=== PATIENT | female | born 1950 | race Caucasian/White ===

== ENCOUNTER 2017-10-04 09:50 | Observation (INO) | payer OTHER ==
[2017-10-04 10:23] VITALS: BMI 28.0
--- NOTE | 2017-10-04 10:40 | PDOC ---
History of Present Illness - General History Source: Patient Exam Limitations: No Limitations - History of Present Illness Initial Comments: 10/04/17 12:20 The patient is a 67 year old female, with a significant past medical history of hypertension and kidney stones, who presents to the emergency department with fever, cough, and body aches for approximately 3 days.The patient reports she initially developed a cough that was productive of white sputum. She reports associated chest discomfort, exacerbated with coughing. She reports a subjective fever, diffuse muscle aches, and a headache(yesterday), but denies any chills, sore throat, dizziness, or lightheadedness. She denies any shortness of breath, diaphoresis, or palpitations. She denies any abdominal pain , nausea, vomiting, diarrhea, or constipation. She denies any dysuria, hematuria , frequency, or urgency. The patient reports she is currently visiting from [place]. Allergies: NKDA Past Surgical History: Lithotripsy Social History: Non smoker. No ETOH or recreational drug use. <Scarlett Viveros - Last Filed: 10/04/17 14:29> <Naga Stinson - Last Filed: 10/04/17 14:52> - General Chief Complaint: SIRS, Suspected/Possible Stated Complaint: FEVER, COUGH Time Seen by Provider: 10/04/17 10:35 Past History <Scarlett Viveros - Last Filed: 10/04/17 14:29> - Past Medical History COPD: No HTN: Yes Kidney Stones: Yes - Surgical History GI Surgery: Yes (KIDNEY STONE REMOVAL) - Suicide/Smoking/Psychosocial Hx Smoking History: Never smoked <Naga Stinson - Last Filed: 10/04/17 14:52> - Past Medical History Allergies/Adverse Reactions: Allergies Allergy/AdvReac Type Severity Reaction Status Date / Time No Known Allergies Allergy Verified 10/04/17 10:18 Review of Systems - Review of Systems Able to Perform ROS?: Yes Comments:: 10/04/17 12:20 CONSTITUTIONAL: +Fever. No chills, no fatigue EYES: No visual changes ENT: No ear pain, no sore throat CARDIOVASCULAR: No chest pain, no palpitations RESPIRATORY: +Cough. No SOB GI: No abdominal pain, no nausea, no vomiting, no constipation, no diarrhea GENITOURINARY: No dysuria, no frequency, no hematuria MUSCULOSKELETAL: +Diffuse muscle aches. No back pain. SKIN: No rash NEURO: +Headache <Scarlett Viveros - Last Filed: 10/04/17 14:29> *Physical Exam - Vital Signs Last Vital Signs Temp Pulse Resp BP Pulse Ox 102.4 F H 111 H 17 156/77 96 10/04/17 10:18 10/04/17 10:18 10/04/17 10:18 10/04/17 10:18 10/04/17 10:18 - Physical Exam Comments: 10/04/17 12:22 CONSTITUTIONAL: Febrile. Well-appearing; well-nourished; in no apparent distress HEAD: Normocephalic; atraumatic EYES: PERRL; EOM intact ENMT: External appears normal; normal oropharynx NECK: Supple; non-tender; no cervical lymphadenopathy. CARD: Normal S1, S2; no murmurs, rubs, or gallops CHEST: Reproducible midsternal chest wall tenderness. RESP: Intermittent wheezing bilaterally. Normal chest excursion with respiration ; no rhonchi, or rales ABD: Soft, non-distended; non-tender; no palpable organomegaly, no palpable hernias EXT: Normal ROM in all four extremities; non-tender to palpation; distal pulses intact SKIN: Warm, dry, no rash NEURO: No focal neurological deficiencies. <Scarlett Viveros - Last Filed: 10/04/17 14:29> - Vital Signs Last Vital Signs Temp Pulse Resp BP Pulse Ox 102.4 F H 111 H 17 156/77 96 10/04/17 10:18 10/04/17 10:18 10/04/17 10:18 10/04/17 10:18 10/04/17 10:18 <Naga Stinson - Last Filed: 10/04/17 14:52> Heart Score/ECG Review - ECG Intrepretation Comment:: 10/04/17 12:23 Vent Rate: 94 bpm IMPRESSION: Normal sinus rhythm. Nonspecific ST and T wave abnormality. <Scarlett Viveros - Last Filed: 10/04/17 14:29> ED Treatment Course - LABORATORY CBC & Chemistry Diagram: 10/04/17 11:17 10/04/17 11:17 - ADDITIONAL ORDERS Additional order review: Laboratory Results 10/04/17 10/04/17 11:17 11:15 PT with INR 12.50 INR 1.11 PTT (Actin FS) 25.9 L VBG pH 7.45 H POC VBG pCO2 40.6 POC VBG pO2 46.0 Mixed VBG HCO3 28.0 H 10/04/17 11:17 RBC 3.70 MCV 94.3 MCHC 35.1 RDW 13.2 MPV 9.4 Neutrophils % 76.0 Lymphocytes % 12.3 Monocytes % 10.6 H Eosinophils % 0.7 Basophils % 0.4 - Medications Given in the ED: ED Medications Discontinued Medications Generic Name Dose Route Start Last Admin Trade Name Sean PRN Reason Stop Dose Admin Acetaminophen 650 mg 10/04/17 10:41 10/04/17 11:02 Tylenol - PO 10/04/17 10:42 650 mg ONCE ONE Administration <Scarlett Viveros - Last Filed: 10/04/17 14:29> - LABORATORY CBC & Chemistry Diagram: 10/04/17 11:17 10/04/17 11:17 <Naga Stinson - Last Filed: 10/04/17 14:52> Medical Decision Making - Medical Decision Making 10/04/17 14:32 This is 67-year-old female with history of hypertension presents with flulike symptoms, fever, chills, myalgias and cough productive of purulent sputum. In the ER, patient is febrile and mildly tachycardic; intermittent expiratory wheezing is noted bilaterally. Chest x-ray reveals no evidence of infiltrate, increased interstitial markings are noted. Patient is noted to be influenza a positive. I suspect influenza a infection with superimposed bacterial pneumonia. We'll administer Tamiflu, ceftriaxone and Zithromax for CAP. Will place in obs. <Naga Stinson - Last Filed: 10/04/17 14:52> *DC/Admit/Observation/Transfer - Attestations Scribe Attestion: 10/04/17 12:23 Documentation prepared by Scarlett Viveros, acting as medical examiner for Naga Stinson MD. <Scarlett Viveros - Last Filed: 10/04/17 14:29> - Discharge Dispostion Decision to Admit order: Yes - Attestations Physician Attestion: 10/04/17 14:31 The documentation was prepared by the scribe under my direct supervision. I have reviewed the documentation which correctly represents the findings, medical decision-making and critical action taken by me. <Naga Stinson - Last Filed: 10/04/17 14:52> Diagnosis at time of Disposition: Influenza A Pneumonia Qualifiers: Pneumonia type: due to unspecified organism Laterality: unspecified laterality Lung location: unspecified part of lung Qualified Code(s): J18.9 - Pneumonia, unspecified organism - Discharge Dispostion Condition at time of disposition: Fair
[2017-10-04] MEDS ORDERED: ACETAMINOPHEN 325 MG TABLET (FP) PO ONE (10:41)
[2017-10-04] MEDS ORDERED: ACETAMINOPHEN 325 MG TABLET (FP) ONE ×2 (11:03→21:45)
[2017-10-04 11:40] LABS: BASO % 0.4 % (0-2.0); EOS % 0.7 % (0-4.5); HEMATOCRIT 34.9 % (32.4-45.2); HEMOGLOBIN 12.2 GM/dL (10.7-15.3); LYMPH % 12.3 % (8-40); MCH 33.1 pg (25.7-33.7); MCHC 35.1 g/dl (32.0-36.0); MEAN CELL VOLUME 94.3 fl (80-96); MEAN PLT VOLUME 9.4 fl (7.5-11.1); MONO % 10.6 % (3.8-10.2); PLATELET COUNT 174 K/MM3 (134-434); RDW 13.2 % (11.6-15.6); WHITE BLOOD COUNT 4.6 K/mm3 (4.0-10.0)
[2017-10-04] MEDS ORDERED: SODIUM CHLORIDE 1,000 ML IV STA ×2 (11:45→15:12)
[2017-10-04 11:58] LABS: VENOUS PC02 40.6 mmHg (38-52); VENOUS PH 7.45 (7.32-7.42)
[2017-10-04 11:59] LABS: INR 1.11 (0.82-1.09); PROTHROMBIN TIME (PATIENT) 12.5 SEC (9.7-13.0)
[2017-10-04 12:02] LABS: ACTIVATED PTT 25.9 SECONDS (26.9-34.4)
[2017-10-04] MEDS ORDERED: OSELTAMIVIR PHOSPHATE 75 MG CAPSULE PO ONE (12:59)
[2017-10-04] MEDS ORDERED: CEFTRIAXONE 1,000 MG in DEXTROSE 5%-WATER - 50 ML IVPB ONE (13:01)
[2017-10-04 13:09] LABS: URINE APPEARANCE SLCLOUDY; URINE BILIRUBIN NEGATIVE (<2.0 mg/dL); URINE COLOR YELLOW; URINE GLUCOSE (UA) NEGATIVE (NEGATIVE); URINE KETONE NEGATIVE (NEGATIVE); URINE LEUK ESTERASE NEGATIVE (NEGATIVE); URINE NITRITE NEGATIVE (NEGATIVE); URINE PROTEIN NEGATIVE (NEGATIVE)
[2017-10-04 13:15] LABS: EPI CELLS RARE /HPF (FEW); URINE BACTERIA RARE /hpf (NONE SEEN); URINE HYALINE CAST 1 /lpf; URINE MUCUS RARE
[2017-10-04] MEDS ORDERED: OSELTAMIVIR PHOSPHATE 75 MG CAPSULE ONE ×2 (13:18→21:45)
[2017-10-04] MEDS ORDERED: CEFTRIAXONE 2 GM/100 ML BAG IVPB ONE (13:19)
[2017-10-04 13:40] LABS: ALBUMIN 4.1 g/dl (3.4-5.0); ANION GAP 11 (8-16); BLOOD UREA NITROGEN 11 mg/dL (7-18); CALCIUM 9.2 mg/dL (8.5-10.1); CHLORIDE 103 mmol/L (98-107); CO2 27 mmol/L (21-32); CREATININE 0.8 mg/dL (0.55-1.02); GLUCOSE,RANDOM 111 mg/dL (74-106); POTASSIUM 3.6 mmol/L (3.5-5.1); SGOT/AST 32 U/L (15-37); SGPT/ALT 44 U/L (12-78); SODIUM 141 mmol/L (136-145)
[2017-10-04 13:42] LABS: ALK PHOS 81 U/L (45-117); BILIRUBIN,TOTAL 0.9 mg/dL (0.2-1.0); TOT PROT 7.3 g/dl (6.4-8.2)
[2017-10-04] MEDS ORDERED: AZITHROMYCIN IVPB 500 MG in DEXTROSE 5%-WATER - 250 ML IVPB ONE (14:15)
[2017-10-04] MEDS ORDERED: ALBUTEROL SO4 2.5/IPRATROPIUM 0.5 INH SOL 3 ML VIAL.NEB. NEB ONE ×2 (14:29→14:48)
[2017-10-04] MEDS ORDERED: AZITHROMYCIN IVPB 250 ML IVPB ONE (14:48)
--- NOTE | 2017-10-04 15:29 | EKG ---
Test Reason : Blood Pressure : / mmHG Vent. Rate : 094 BPM Atrial Rate : 094 BPM P-R Int : 124 ms QRS Dur : 080 ms QT Int : 326 ms P-R-T Axes : 080 054 102 degrees QTc Int : 407 ms POOR DATA QUALITY, INTERPRETATION MAY BE ADVERSELY AFFECTED NORMAL SINUS RHYTHM NONSPECIFIC ST AND T WAVE ABNORMALITY ABNORMAL ECG NO PREVIOUS ECGS AVAILABLE Confirmed by MAGGY SOLORZANO, SONIA ([id number]) on 10/04/2017 3:28:56 PM Referred By: Confirmed By:SONIA WINTER MD
--- NOTE | 2017-10-04 15:57 | HP ---
<Paula Rivers - Last Filed: 10/05/17 08:56> Patient presented with fever, myalgia, stated that her family had the flu. ID Consult , will start her Tamiflu 75mg bid , Patient received Rocephin and Zithromax IV . Discussed with ID. CXR: No acute pathology. Visit type - Emergency Visit Emergency Visit: Yes ED Registration Date: 10/04/17 Care time: The patient presented to the Emergency Department on the above date and was hospitalized for further evaluation of their emergent condition. - New Patient This patient is new to me today: Yes Date on this admission: 10/05/17 - Critical Care Critical Care patient: Yes Total Critical Care Time (in minutes): 35 Critical Care Statement: The care of this patient involved high complexity decision making to prevent further life threatening deterioration of the patient 's condition and/or to evaluate & treat vital organ system(s) failure or risk of failure. Hospitalist Screening - Colonoscopy Questionnaire Colonoscopy Questionnaire: Colonoscopy Questionnaire <Aide Kincaid - Last Filed: 10/08/17 17:44> CHIEF COMPLAINT: Cough, fever, malaise PCP: Physician in [place] HISTORY OF PRESENT ILLNESS: Patient is a 67 year old female with a PMHx of HTN and Asthma who presented today complaining of worsening cough, fever, and malaise for the past three days. Patient reports a productive cough with white phlegm associated with body aches, muscle aches, and chest pain. She states the chest pain occurs only when she coughs or when palpating the chest. She does report being around her sister in law who had the flu this week and is staying at her place. Patient does report having blood tinged sputum due to excessive and severe cough for the past two days. Otherwise, patient denies any night sweats, diaphoresis, shortness of breath, rhinorrhea, chills, nausea, vomiting, abdominal pain, hematuria, dysuria, frequency, urgency. Patient currently lives in [place] and is suppose to go back on Monday. She does have a PCP in [place]. ER course was notable for: (1) Fever >102, Tachycardic (2) Flu A (+) (3) Chest X-ray shows increased interstitial markings Recent Travel: [place] PAST MEDICAL HISTORY: HTN, Asthma (On no medications) PAST SURGICAL HISTORY: Cholecystectomy (1993), Carpal Tunnel release, Hysterectomy (30 years ago), (34 years) Social History: Smoking: Denies Alcohol: Denies Drugs: Denies Family History: Denies Allergies: No Known Allergies Allergy (Verified 10/04/17 10:18) HOME MEDICATIONS: Home Medications Medication Instructions Recorded Hydrochlorothiazide [Hctz -] 25 mg PO DAILY 10/04/17 Lisinopril [Prinivil] 5 mg PO DAILY 10/04/17 REVIEW OF SYSTEMS CONSTITUTIONAL: fever, generalized weakness, malaise Absent: chills, diaphoresis, loss of appetite, weight change HEENT: Absent: rhinorrhea, nasal congestion, throat pain, throat swelling, difficulty swallowing, mouth swelling, ear pain, eye pain, visual changes CARDIOVASCULAR: chest pain Absent: chest pain, syncope, palpitations, irregular heart rate, lightheadedness , peripheral edema RESPIRATORY: cough, wheezing Absent: shortness of breath, dyspnea with exertion, orthopnea, stridor, hemoptysis GASTROINTESTINAL: Absent: abdominal pain, abdominal distension, nausea, vomiting, diarrhea, constipation, melena, hematochezia GENITOURINARY: Absent: dysuria, frequency, urgency, hesitancy, hematuria, flank pain, genital pain MUSCULOSKELETAL: myalgia Absent: arthralgia, joint swelling, back pain, neck pain SKIN: Absent: rash, itching, pallor HEMATOLOGIC/IMMUNOLOGIC: Absent: easy bleeding, easy bruising, lymphadenopathy, frequent infections ENDOCRINE: Absent: unexplained weight gain, unexplained weight loss, heat intolerance, cold intolerance NEUROLOGIC: Absent: headache, focal weakness or paresthesias, dizziness, unsteady gait, seizure, mental status changes, bladder or bowel incontinence PSYCHIATRIC: Absent: anxiety, depression, suicidal or homicidal ideation, hallucinations. PHYSICAL EXAMINATION Vital Signs - 24 hr 10/04/17 10:18 Temperature 102.4 F H Pulse Rate 111 H Respiratory 17 Rate Blood Pressure 156/77 O2 Sat by Pulse 96 Oximetry (%) GENERAL: Awake, alert, and fully oriented, in no acute distress. HEAD: Normal with no signs of trauma. EYES: Pupils equal, round and reactive to light, extraocular movements intact, sclera anicteric, conjunctiva clear. EARS, NOSE, THROAT: Oropharynx clear without exudates. Moist mucous membranes. NECK: Normal range of motion, supple without lymphadenopathy, JVD, or masses. LUNGS: Coughing throughout examination. Expiratory wheezing throughout lung bases, R>L, no accessory muscle use. HEART: Tachycardic with regular rhythm, normal S1 and S2 without murmur, rub or gallop. Tenderness upon palpation of chest wall ABDOMEN: Soft, nontender, not distended, normoactive bowel sounds, no guarding, no rebound, no masses. MUSCULOSKELETAL: No CVA tenderness. UPPER EXTREMITIES: No peripheral edema. LOWER EXTREMITIES: No peripheral edema. NEUROLOGICAL: Cranial nerves II-XII intact. Normal speech.Muscle strength 5/5 bilaterally. Sensory intact throughout. No facial symmetry. PSYCHIATRIC: Cooperative. Good eye contact. Appropriate mood and affect. SKIN: Warm, dry, normal turgor, no rashes or lesions noted, normal capillary refill. Laboratory Results - last 24 hr CBC, BMP 10/04/17 11:17 10/04/17 11:17 10/04/17 10/04/17 10/04/17 11:15 11:17 11:17 INR 1.11 PTT (Actin FS) 25.9 L VBG pH 7.45 H POC VBG pCO2 40.6 POC VBG pO2 46.0 Mixed VBG HCO3 28.0 H AST 32 ALT 44 Alkaline Phosphatase 81 Microbiology 10/04/17 11:17 Influenza Types A,B Antigen (KEITH) - Final Nasopharyngeal Swab - Final Images Chest X-Ray (10/04/17): Increased interstitial markings. No evidence of infiltrates. ASSESSMENT/PLAN: Patient is a 67 year old female who presented with a three day history of fevers , cough, malaise, body aches and was found to be Flu A positive with possible Pneumonia. Sepsis Secondary Influenza A Positive with Possible Superimposed Bacterial Pneumonia -Fever >102F with Tachycardia >90's . Flu swab positive. -Continue Tamiflu 75mg BID for 5 days -Droplet Isolation precaution -Supportive Care -Continue Azithromycin 500mg IVPB daily and Ceftriaxone 1gm IVPB daily for CAP -Vancomycin 1gm daily for possible staph pneumonia in setting of flu -ID consult placed -Tylenol 650mg Q4H PRN for fevers -1 liter IV NS given with second bolus ordered. -Robitussin for cough -Urine antigens ordered -Sputum cultures sent -[facility] -Blood cultures pending Chest Wall tenderness -Likely costrochondritis due to inflammation and cough -Will continue Tylenol and may give NSAID if no improvement HTN -Controlled -Continue Home medication Lisinopril 5mg daily and HCTZ 25mg daily -Continue to monitor BP Asthma -In no acute exacerbation -Duo-Neb PRN F/E/N -2L IV NS -Electrolytes wnl -Sodium controlled diet Prophylaxis -Patient ambulates. Low risk. SCD's for DVT -No GI required Disposition -Full code -Will observe overnight in med/surg. Likely discharged tomorrow if improves Aide Kincaid MD PGY-2 Visit type - Emergency Visit Emergency Visit: Yes ED Registration Date: 10/04/17 Care time: The patient presented to the Emergency Department on the above date and was hospitalized for further evaluation of their emergent condition. - New Patient This patient is new to me today: Yes Date on this admission: 10/04/17 - Critical Care Critical Care patient: No Hospitalist Screening - Colonoscopy Questionnaire Colonoscopy Questionnaire: Colonoscopy Questionnaire - Patient: 50 - 75 years old and never had a screening colonoscopy: Unknown History of colon or rectal polyps, or CA: Unknown History of IBD, Crohn's disease or UC: Unknown History of abdominal radiation therapy as a child: Unknown - Relative: 1 with colon or rectal CA, or polyps at age 60 or younger: Unknown Colon or rectal CA diagnosed at age 45 or younger: Unknown Multiple relatives with colon or rectal CA: Unknown - Outcome: Screening Result: Negative Screen
[2017-10-04] MEDS ORDERED: IBUPROFEN 400 MG TABLET (FP) PO ONE (16:32)
[2017-10-04] MEDS ORDERED: ONDANSETRON 4 MG/2 ML VIAL IVPUSH ONE (17:30)
[2017-10-04] MEDS ORDERED: VANCOMYCIN 1 GM PREMIX - 1 GM/200 ML BAG IVPB ONE (17:30)
[2017-10-04] MEDS ORDERED: VANCOMYCIN 1,000 MG in DEXTROSE 5%-WATER - 250 ML IVPB ONE (17:30)
[2017-10-04] MEDS ORDERED: VANCOMYCIN 1,000 MG in DEXTROSE 5%-WATER - 250 ML IVPB SCH (17:30)
[2017-10-04] MEDS ORDERED: VANCOMYCIN 1 GRAM (PRE-DOCKED) 1,000 MG/250 ML BAG IVPB ONE ×2 (17:47)
[2017-10-04] MEDS ORDERED: ONDANSETRON 4 MG/2 ML VIAL ONE (17:47)
[2017-10-04] MEDS ORDERED: guaiFENesin 200 MG/10 ML 10 ML UNIT-DOSE CUPS PO PRN (18:26)
[2017-10-04] MEDS: OSELTAMIVIR PHOSPHATE 75 MG CAPSULE PO SCH (21:48)
[2017-10-04] MEDS: ACETAMINOPHEN 325 MG TABLET (FP) PO PRN (21:48)
[2017-10-05] MEDS: ALBUTEROL SO4 2.5/IPRATROPIUM 0.5 INH SOL 3 ML VIAL.NEB. NEB PRN ×2 (07:25→13:54)
[2017-10-05] MEDS ORDERED: HYDROCHLOROTHIAZIDE 25 MG TABLET (FP) PO SCH (10:00)
[2017-10-05] MEDS ORDERED: PT OWN MED DRAWER 7, Y5N ONE (10:04)
[2017-10-05] MEDS ORDERED: cefTRIAXone SODIUM 1 GM VIAL ONE (10:04)
[2017-10-05] MEDS ORDERED: DEXTROSE 5%-WATER - 50 ML IVPB ONE (10:04)
[2017-10-05] MEDS: OSELTAMIVIR PHOSPHATE 75 MG CAPSULE PO SCH ×2 (10:19→21:44)
[2017-10-05] MEDS: ACETAMINOPHEN 325 MG TABLET (FP) PO PRN (10:19)
[2017-10-05] MEDS: LISINOPRIL 5 MG TABLET (FP) PO SCH (10:19)
[2017-10-05] MEDS: CEFTRIAXONE 1 GM in DEXTROSE 5%-WATER - 50 ML IVPB SCH (10:20)
[2017-10-05] MEDS: AZITHROMYCIN IVPB 500 MG in DEXTROSE 5%-WATER - 250 ML IVPB SCH (10:22)
--- NOTE | 2017-10-05 14:59 | PN ---
Teaching Attending Note Name of Resident: Sheela Navarro ATTENDING PHYSICIAN STATEMENT I saw and evaluated the patient. I reviewed the resident's note and discussed the case with the resident. I agree with the resident's findings and plan as documented. SUBJECTIVE: pATIENT IS feeling better with no acute distress. Much better than yesterday. No fever or chills, no shortness of breath. OBJECTIVE: Vital Signs Temperature 99.2 F 10/05/17 14:45 Pulse Rate 78 10/05/17 14:45 Respiratory Rate 18 10/05/17 14:45 Blood Pressure 120/87 10/05/17 14:45 O2 Sat by Pulse Oximetry (%) 98 10/05/17 03:00 CBCD WBC 4.6 K/mm3 (4.0-10.0) 10/04/17 11:17 RBC 3.70 M/mm3 (3.60-5.2) 10/04/17 11:17 Hgb 12.2 GM/dL (10.7-15.3) 10/04/17 11:17 Hct 34.9 % (32.4-45.2) 10/04/17 11:17 MCV 94.3 fl (80-96) 10/04/17 11:17 MCHC 35.1 g/dl (32.0-36.0) 10/04/17 11:17 RDW 13.2 % (11.6-15.6) 10/04/17 11:17 Plt Count 174 K/MM3 (134-434) 10/04/17 11:17 MPV 9.4 fl (7.5-11.1) 10/04/17 11:17 CMP Sodium 141 mmol/L (136-145) 10/04/17 11:17 Potassium 3.6 mmol/L (3.5-5.1) 10/04/17 11:17 Chloride 103 mmol/L (98-107) 10/04/17 11:17 Carbon Dioxide 27 mmol/L (21-32) 10/04/17 11:17 Anion Gap 11 (8-16) 10/04/17 11:17 BUN 11 mg/dL (7-18) 10/04/17 11:17 Creatinine 0.8 mg/dL (0.55-1.02) 10/04/17 11:17 Creat Clearance w eGFR > 60 (>60) 10/04/17 11:17 Random Glucose 111 mg/dL (74-106) H 10/04/17 11:17 Calcium 9.2 mg/dL (8.5-10.1) 10/04/17 11:17 Total Bilirubin 0.9 mg/dL (0.2-1.0) 10/04/17 11:17 AST 32 U/L (15-37) 10/04/17 11:17 ALT 44 U/L (12-78) 10/04/17 11:17 Alkaline Phosphatase 81 U/L (45-117) 10/04/17 11:17 Total Protein 7.3 g/dl (6.4-8.2) 10/04/17 11:17 Albumin 4.1 g/dl (3.4-5.0) 10/04/17 11:17 CARDIAC ENZYMES Troponin I < 0.02 ng/ml (0.00-0.05) 10/04/17 11:17 Current Medications Generic Name Dose Route Start Last Admin Trade Name Freq PRN Reason Stop Dose Admin Acetaminophen 650 mg 10/04/17 15:12 10/05/17 10:19 Tylenol - PO 650 mg Q4H PRN Administration FEVER Albuterol/Ipratropium 1 amp 10/04/17 15:53 10/05/17 13:54 Duoneb - NEB 1 amp Q6H PRN Administration SHORTNESS OF BREATH Guaifenesin 10 ml 10/04/17 18:26 Robitussin - PO Q4H PRN COUGH Hydrochlorothiazide 25 mg 10/05/17 10:00 10/05/17 10:19 Hctz - PO 25 mg hold for now DAILY EMELY Administration Azithromycin 500 mg/ Dextrose 250 mls @ 250 mls/hr 10/05/17 10:00 10/05/17 10 :22 IVPB 250 mls/hr DAILY EMELY Administration Ceftriaxone Sodium 1 gm/ 50 mls @ 200 mls/hr 10/05/17 10:00 10/05/17 10:20 Dextrose IVPB 200 mls/hr DAILY EEMLY Administration Protocol Lisinopril 5 mg 10/05/17 10:00 10/05/17 10:19 Prinivil PO 5 mg DAILY EMELY Administration Oseltamivir Phosphate 75 mg 10/04/17 22:00 10/05/17 10:19 Tamiflu - PO 10/09/17 21:59 75 mg BID EMELY Administration Home Medications Medication Instructions Recorded Hydrochlorothiazide [Hctz -] 25 mg PO DAILY 10/04/17 Lisinopril [Prinivil] 5 mg PO DAILY 10/04/17 PE: Chest: CTABL rest of PE per resident ASSESSMENT AND PLAN: Patient is a 67 year old female who presented with a three day history of fevers , cough, malaise, body aches and was found to be Flu A positive with possible Pneumonia. #s/p Sepsis Secondary Influenza A Positive continue Tamiflu 75mg po bid x 5 days (07/03), On Rocephin, Zithromax continue , Droplet precaution #Chest Wall tenderness costrochondritis or irritation of the lungs due to having inflammation and cough. continue Tylenol prn #HTN Controlled continue Home medication Lisinopril 5mg daily and wii hold HCTZ 25mg po daily for now # Asthma stable, Duo-Neb PRN DVT Px: Lovenox sq Possible dc in am
--- NOTE | 2017-10-05 15:45 | PN ---
Progress Note (short form) - Note Progress Note: ID Consult dictated Acute influenza A Possible secondary bacterial pneumonia Continue Tamiflu, empiric ceftriaxone/ zithromax Droplet precautions
--- NOTE | 2017-10-05 16:52 | CONS ---
INFECTIOUS DISEASE CONSULTATION DATE OF CONSULTATION: DATE OF DICTATION: 10/05/2017 A 67-year-old female evaluated for acute influenza A. She is visiting from [place]. She was staying with family members here in [place], one or two of whom were sick with acute influenza. The patient developed a cough productive of whitish sputum and generalized body aches, headache, and fever. Symptoms began approximately 2-3 days prior to admission. She presented to the emergency room where she was noted to have fever to 102, tachycardia, and wheezing. Chest x-ray was negative for acute infiltrate. A rapid influenza swab was performed and was positive for influenza A. At the present time, she complains of body ache and cough which has improved. She denies any headache at the present time. No complaints of chest pain or dyspnea. She reports that at times the expectorated sputum is blood streaked. PAST MEDICAL HISTORY: Positive for hypertension, nephrolithiasis, asthma. PAST SURGICAL HISTORY: Status post cholecystectomy, hysterectomy, section. ALLERGIES: No known allergies. MEDICATIONS: Include Tylenol, lisinopril, Zithromax, ceftriaxone, Tamiflu. SOCIAL HISTORY: Living in [place], visiting [place]. Nonsmoker, nondrinker. SYSTEMS REVIEW: Neurologic: No loss of consciousness, seizure activity, focal weakness. Cardiac: Negative chest pain or palpitations. Respiratory: As per HPI. Gastrointestinal: Negative vomiting or diarrhea. Genitourinary: Negative for urinary tract infection. LABORATORY DATA: White count 4.6, hematocrit 34.9, platelet count 174. BUN 17, creatinine 0.8. Sputum: Normal ed. Blood culture is negative. Influenza swab positive. PHYSICAL EXAMINATION: General: She is awake and alert. She is weak appearing, in no acute distress. Vital Signs: Temperature 99.2, T-max 102.4; blood pressure 126/87; pulse 78, regular; respirations 18 per minute. HEENT: Sclerae are anicteric. Oropharynx: Mild injection. No exudate. Neck: Supple. No palpable nodes. Heart: Sounds S1, S2. Lungs: Crepitations at the bases bilaterally. Scattered rhonchi. Abdomen: Soft. No tenderness elicited. No mass, rebound, or rigidity. Extremities: Negative for edema. IMPRESSION: 1. Acute influenza A. 2. Possible secondary bacterial pneumonia. 3. Exacerbation of bronchial asthma. Continue Tamiflu. Continue Zithromax and ceftriaxone for possible secondary bacterial pneumonitis. Droplet precautions. Thank you for the kind referral. FRIDA PEÑA M.D. SHELBY/[id number]
--- NOTE | 2017-10-05 17:39 | PN ---
Physical Exam: SUBJECTIVE: Patient seen and examined at bedside. States that she still has a nonproductive cough, but feels better. No longer with malaise. She would like to go to [place] if possible. Denies CABRERA, fever, chills, SOB, or changes in urinary or bowel function. OBJECTIVE: Vital Signs Period Temp Pulse Resp BP Sys/Hunter Pulse Ox Last 24 Hr 98.3 F-102.3 F 75-110 18-20 106-133/52-87 96-98 GENERAL: The patient is awake, alert, and fully oriented, in no acute distress. HEAD: Normal with no signs of trauma. EYES: PERRL, extraocular movements intact, sclera anicteric, conjunctiva clear. ENT: Ears normal, nares patent, oropharynx - erythematous , moist mucous membranes. NECK: Trachea midline, supple. LUNGS: +diffuse rhonchi appreciated posteriorly (increased in bases) HEART: Regular rate and rhythm, S1, S2 without murmur, rub or gallop. ABDOMEN: Soft, nontender, nondistended, normoactive bowel sounds, no guarding, no rebound, no hepatosplenomegaly, no masses. EXTREMITIES: 2+ dp pulses, warm, well-perfused, no edema. NEUROLOGICAL: Cranial nerves II through XII grossly intact. Normal speech PSYCH: Normal mood, normal affect. SKIN: Warm, dry, normal turgor Laboratory Results - last 24 hr 10/04/17 11:17 Sodium 141 Potassium 3.6 Chloride 103 Carbon Dioxide 27 Anion Gap 11 BUN 11 Creatinine 0.8 Creat Clearance w eGFR > 60 Random Glucose 111 H Calcium 9.2 Total Bilirubin 0.9 AST 32 ALT 44 Alkaline Phosphatase 81 Troponin I < 0.02 Total Protein 7.3 Albumin 4.1 Active Medications Generic Name Dose Route Start Last Admin Trade Name Freq PRN Reason Stop Dose Admin Acetaminophen 650 mg 10/04/17 15:12 10/05/17 10:19 Tylenol - PO 650 mg Q4H PRN Administration FEVER Albuterol/Ipratropium 1 amp 10/04/17 15:53 10/05/17 13:54 Duoneb - NEB 1 amp Q6H PRN Administration SHORTNESS OF BREATH Guaifenesin 10 ml 10/04/17 18:26 Robitussin - PO Q4H PRN COUGH Azithromycin 500 mg/ Dextrose 250 mls @ 250 mls/hr 10/05/17 10:00 10/05/17 10 :22 IVPB 250 mls/hr DAILY EMELY Administration Ceftriaxone Sodium 1 gm/ 50 mls @ 200 mls/hr 10/05/17 10:00 10/05/17 10:20 Dextrose IVPB 200 mls/hr DAILY EMELY Administration Protocol Lisinopril 5 mg 10/05/17 10:00 10/05/17 10:19 Prinivil PO 5 mg DAILY EMELY Administration Oseltamivir Phosphate 75 mg 10/04/17 22:00 10/05/17 10:19 Tamiflu - PO 10/09/17 21:59 75 mg BID EMELY Administration CXR: no acute pathology Influenza A+ UCx (-) Blood Cx currently (-) sputum cx (-) ASSESSMENT/PLAN: Patient is a 67 year old female who presented with a three day history of fevers , cough, malaise, body aches and was found to be Flu A positive with possible Pneumonia. #Influenza A+ with Possible Superimposed Bacterial Pneumonia -currently is not septic; only with temp -Droplet Isolation precaution -supportive Care -Azithromycin 500mg IVPB qd and Ceftriaxone 1gm IVPB qd for CAP - Today is Day 2 -Tamiflu 75mg BID for 5 days - Today is Day 2 -sandrao has been d/c -ID- Dr. Payan -Tylenol 650 mg PO Q4H PRN for fever -Robitussin -UCx, Blood cx (-) #Chest Wall tenderness, likely costochondritis -continue tylenol 650 mg PO q4h PRN #HTN - controlled -Continue Home medication Lisinopril 5mg daily and HCTZ 25mg daily #Asthma -In no acute exacerbation -Duo-Neb PRN #F/E/N -encourage PO intake -continue to follow lytes -Sodium controlled diet Prophylaxis -Patient ambulates. Low risk. SCD's for DVT Disposition -continued monitoring on med surg Visit type - Emergency Visit Emergency Visit: No - New Patient This patient is new to me today: No - Critical Care Critical Care patient: No
[2017-10-06] MEDS: ACETAMINOPHEN 325 MG TABLET (FP) PO PRN (02:51)
[2017-10-06] MEDS: ALBUTEROL SO4 2.5/IPRATROPIUM 0.5 INH SOL 3 ML VIAL.NEB. NEB PRN (07:40)
[2017-10-06 08:53] LABS: BASO % 0.5 % (0-2.0); EOS % 2.4 % (0-4.5); HEMATOCRIT 36.3 % (32.4-45.2); HEMOGLOBIN 12.6 GM/dL (10.7-15.3); LYMPH % 48.4 % (8-40); MCH 33.1 pg (25.7-33.7); MCHC 34.6 g/dl (32.0-36.0); MEAN CELL VOLUME 95.4 fl (80-96); NEUT % 35.7 % (42.8-82.8); PLATELET COUNT 176 K/MM3 (134-434); RDW 13.1 % (11.6-15.6)
[2017-10-06 09:28] LABS: ANION GAP 8 (8-16); BLOOD UREA NITROGEN 10 mg/dL (7-18); CALCIUM 8.3 mg/dL (8.5-10.1); CHLORIDE 102 mmol/L (98-107); CO2 31 mmol/L (21-32); GLUCOSE,RANDOM 89 mg/dL (74-106); POTASSIUM 3.8 mmol/L (3.5-5.1); SODIUM 141 mmol/L (136-145)
[2017-10-06 09:29] LABS: CREATININE 0.8 mg/dL (0.55-1.02)
[2017-10-06] MEDS: CEFTRIAXONE 1 GM in DEXTROSE 5%-WATER - 50 ML IVPB SCH (10:00)
[2017-10-06] MEDS ORDERED: cefTRIAXone SODIUM 1 GM VIAL ONE (10:16)
[2017-10-06] MEDS ORDERED: DEXTROSE 5%-WATER - 50 ML IVPB ONE (10:17)
[2017-10-06] MEDS: LISINOPRIL 5 MG TABLET (FP) PO SCH (10:30)
[2017-10-06] MEDS: OSELTAMIVIR PHOSPHATE 75 MG CAPSULE PO SCH (10:30)
[2017-10-06] MEDS: AZITHROMYCIN IVPB 500 MG in DEXTROSE 5%-WATER - 250 ML IVPB SCH (10:31)
[2017-10-06 13:43] VITALS: BP 133/71; PULSE 80; TEMP 99.1
--- NOTE | 2017-10-06 20:07 | PN ---
Teaching Attending Note Name of Resident: Sheela Navarro ATTENDING PHYSICIAN STATEMENT I saw and evaluated the patient. I reviewed the resident's note and discussed the case with the resident. I agree with the resident's findings and plan as documented. SUBJECTIVE: Patient is feeling much better and would like to go home. OBJECTIVE: Vital Signs Temperature 99.1 F 10/06/17 09:00 Pulse Rate 80 10/06/17 09:00 Respiratory Rate 16 10/06/17 11:00 Blood Pressure 133/71 10/06/17 09:00 O2 Sat by Pulse Oximetry (%) 99 10/06/17 11:00 CBCD WBC 3.0 K/mm3 (4.0-10.0) L D 10/06/17 07:45 RBC 3.80 M/mm3 (3.60-5.2) 10/06/17 07:45 Hgb 12.6 GM/dL (10.7-15.3) 10/06/17 07:45 Hct 36.3 % (32.4-45.2) 10/06/17 07:45 MCV 95.4 fl (80-96) 10/06/17 07:45 MCHC 34.6 g/dl (32.0-36.0) 10/06/17 07:45 RDW 13.1 % (11.6-15.6) 10/06/17 07:45 Plt Count 176 K/MM3 (134-434) 10/06/17 07:45 MPV 10.0 fl (7.5-11.1) 10/06/17 07:45 CMP Sodium 141 mmol/L (136-145) 10/06/17 07:45 Potassium 3.8 mmol/L (3.5-5.1) 10/06/17 07:45 Chloride 102 mmol/L (98-107) 10/06/17 07:45 Carbon Dioxide 31 mmol/L (21-32) 10/06/17 07:45 Anion Gap 8 (8-16) 10/06/17 07:45 BUN 10 mg/dL (7-18) 10/06/17 07:45 Creatinine 0.8 mg/dL (0.55-1.02) 10/06/17 07:45 Creat Clearance w eGFR > 60 (>60) 10/04/17 11:17 Random Glucose 89 mg/dL (74-106) 10/06/17 07:45 Calcium 8.3 mg/dL (8.5-10.1) L 10/06/17 07:45 Total Bilirubin 0.9 mg/dL (0.2-1.0) 10/04/17 11:17 AST 32 U/L (15-37) 10/04/17 11:17 ALT 44 U/L (12-78) 10/04/17 11:17 Alkaline Phosphatase 81 U/L (45-117) 10/04/17 11:17 Total Protein 7.3 g/dl (6.4-8.2) 10/04/17 11:17 Albumin 4.1 g/dl (3.4-5.0) 10/04/17 11:17 CARDIAC ENZYMES Troponin I < 0.02 ng/ml (0.00-0.05) 10/04/17 11:17 Home Medications Medication Instructions Recorded Hydrochlorothiazide [Hctz -] 25 mg PO DAILY 10/04/17 Lisinopril [Prinivil] 5 mg PO DAILY 10/04/17 Oseltamivir Phosphate [Tamiflu] 75 mg PO BID #5 capsule 10/06/17 PE: as per resident's note ASSESSMENT AND PLAN: # Influenza A : patient is doing much better, will send her home 2.5 more days of Tamiflu, follow with the educational administrator in a week period. discussed with ID just to discharge home on tamiflu, no any other Antibiotics.
--- NOTE | 2017-10-06 22:46 | DS ---
Physical Exam: SUBJECTIVE: Patient seen and examined at bedside. No acute events overnight. Pt states that she is feeling well today and is ready to go to [place]. Denies CABRERA, fever, chills, myalgias, changes in urinary or bowel function. OBJECTIVE: Vital Signs Period Temp Pulse Resp BP Sys/Hunter Pulse Ox Last 24 Hr 98.6 F-100.4 F 77-81 16-20 133-140/71-79 99-99 PHYSICAL EXAM GENERAL: The patient is siting comfortably. awake, alert, and fully oriented, in no acute distress. HEAD: Normal with no signs of trauma. EYES: PERRL, extraocular movements intact, sclera anicteric, conjunctiva clear. ENT: Ears normal, nares patent, oropharynx clear without exudates, moist mucous membranes. NECK: Trachea midline, full range of motion, supple. LUNGS: Breath sounds equal, clear to auscultation bilaterally, no wheezes, no crackles, no accessory muscle use. HEART: Regular rate and rhythm, S1, S2 without murmur, rub or gallop. ABDOMEN: Soft, nontender, nondistended, normoactive bowel sounds, no guarding, no rebound, no hepatosplenomegaly, no masses. EXTREMITIES: 2+ dp pulses, warm, well-perfused, no edema. NEUROLOGICAL: Cranial nerves II through XII grossly intact. Normal speech PSYCH: Normal mood, normal affect. SKIN: Warm, dry, normal turgor LABS Laboratory Results - last 24 hr 10/06/17 10/06/17 07:45 07:45 WBC 3.0 L D RBC 3.80 Hgb 12.6 Hct 36.3 MCV 95.4 MCH 33.1 MCHC 34.6 RDW 13.1 Plt Count 176 MPV 10.0 Neutrophils % 35.7 L D Lymphocytes % 48.4 H D Monocytes % 13.0 H Eosinophils % 2.4 D Basophils % 0.5 Sodium 141 Potassium 3.8 Chloride 102 Carbon Dioxide 31 Anion Gap 8 BUN 10 Creatinine 0.8 Random Glucose 89 Calcium 8.3 L Radiology 10/04/17: CXR: without acute pathology Microbiology 10/04/17 12:50 Urine - Urine Clean Catch Urine Culture - Final NO GROWTH OBTAINED 10/04/17 11:30 Sputum - Expectorated Gram Stain - Final 10/04/17 11:30 Sputum - Expectorated Sputum Culture - Final NORMAL RESPIRATORY SENIA 10/04/17 11:17 Nasopharyngeal Swab Influenza Types A,B Antigen (KEITH) - Final : (+)FluA 10/04/17 11:17 Nasopharyngeal Swab - Final 10/04/17 11:25 Blood - Peripheral Venous Blood Culture - Preliminary NO GROWTH OBTAINED AFTER 48 HOURS, INCUBATION TO CONTINUE FOR 3 DAYS. 10/04/17 10:40 Blood - Peripheral Venous Blood Culture - Preliminary NO GROWTH OBTAINED AFTER 48 HOURS, INCUBATION TO CONTINUE FOR 3 DAYS. HOSPITAL COURSE: Date of Admission:10/04/17 Date of Discharge: 10/06/17 Admit diagnosis: influenza A+ with possible superimposed bacterial PNA 67 y/o F with a PMHx of HTN and Asthma who presented today c/o worsening cough, fever, and malaise for the past three days. Patient reports a productive cough with white phlegm associated with myalgias and pleuritic chest pain. Pt admitted for +FluA with possible superimposed bacterial PNA. While the pt was hospitalized, she was maintained on tamiflu 75mg PO BID for a five day course, of which she completed 3 days before d/c. She was started on azithromycin 500mg IVPB qd and ceftriaxone 1gm IVPB qd for community acquired PNA coverage for two days in case of superimposed infection. Today pt with significant improvement, without myalgias, improved breathing and lung sounds, d/c on continued tamiflu 75mg PO ID for two additional days to complete course. To follow up with primary care physician in a week. Minutes to complete discharge: 38 Discharge Summary Reason For Visit: INFLUENZA Condition: Fair - Instructions Diet, Activity, Other Instructions: You were in the hospital because you had the flu and pneumonia. Please continue to rest at home by drinking lots of fluids. You may take tylenol for pain, this is offered over the counter. We would like you to continue the medication, Tamiflu 75mg. Take one dose this evening (10/06) on the day of your discharge, and then take it twice a day for the next two days (on 10/07, 10/08) to finish the course. While you are recovering from the flu, you should wear a face mask in order to prevent the spread of illness to others. Please follow up with a primary care doctor, Dr. Ayala in a week to discuss your hospital visit. If you develop chest pain, or shortness of breath, please go to the hospital. We hope you feel better soon. Referrals: Ethan Ayala MD [Staff Physician] - Disposition: HOME - Home Medications Comprehensive Discharge Medication List: Ambulatory Orders Hydrochlorothiazide [Hctz -] 25 mg PO DAILY 10/04/17 Lisinopril [Prinivil] 5 mg PO DAILY 10/04/17 Oseltamivir Phosphate [Tamiflu] 75 mg PO BID #5 capsule 10/06/17 This patient is new to me today: No Emergency Visit: No Critical Care patient: No - Discharge Referral Referred to [facility] No
== END 2017-10-06 16:12 | disposition home or self-care (01) ==
LOC: JER 09:50 → JERBED 14:52 → J8W 23:34
PROVIDERS: ADMIT Internal Medicine; ATTEND Internal Medicine
PROC: 3E0337Z Introduction of Electrolytic and Water Balance Substance into Peripheral Vein, Percutaneous Approach (ICD-10-PCS; principal; 2017-10-04)
PROC: 3E0F7GC Introduction of Other Therapeutic Substance into Respiratory Tract, Via Natural or Artificial Opening (ICD-10-PCS; 2017-10-04)
DX: J10.1 Influenza due to other identified influenza virus with other respiratory manifestations (principal); R07.89 Other chest pain; I10 Essential (primary) hypertension; J45.901 Unspecified asthma with (acute) exacerbation
CPT/HCPCS: 36415; 71045-TC-FY; 80048; 80053; 81003; 81015; 82803; 83605; 84484; 85025; 85610; 85730; 87040; 87070; 87086; 87205; 87804; 93005; 93010; 94640; 96361; 96365; 96367; 96375; 97116-GP; 97161-GP; 99283-25; G0378; J7030; J7620